=== PATIENT | male | born 1950 | race Caucasian/White ===

== ENCOUNTER → 2016-12-20 | Outpatient (CLI) | payer OTHER ==
[2015-11-17 12:41] VITALS: BP 123/72
--- NOTE | 2016-12-20 16:57 | CT ---
HISTORY: Right flank pain. Study: Computed tomography of the abdomen and pelvis: Multiple axial images were obtained throughout the abdomen and pelvis. Intravascular contrast was not administered. Oral contrast was not administe red. Radiation dose reduction techniques utilized. Comparison: 12/19/2013 Findings: The lung bases are clear. No evidence of pleural effusion, parenchymal infiltrates pulmonary nodules are identified. The heart size is normal. Significant coronary arterial calcification noted. The liver and gallbladder are normal. The pancreas is normal in its appearance. The spleen is normal in its appearance. No appreciable biliary duct dilatation is noted. The adrenal glands are normal. Mi nimal calcification noted within the abdominal aorta proximally. No evidence of an abdominal aortic a neurysm or retroperitoneal lymph node enlargement is noted. Mild to moderate is noted in the mid with minimal distally. Mild is noted in the iliac vessels. No evidence of pelvic adenopathy is identified . Mild prostatomegaly is noted. Prostatic calcifications are present. There appears to be hypertrophy of the median lobe of prostate. Small fat containing inguinal hernia is noted on the left. Seminal v esicles are symmetric. The right kidney demonstrates a 2-3 mm calcification in the upper pole that is nonobstructing. There is a 4- 5 mm calcification in the lower pole that is nonobstructing. The left kidney demonstrates a 4 - 5 mm calcification in the lower pole that is nonobstructing. Following the course of the ureters I see no evidence of ureteral dilatation or ureteral calculi. The stomach is nondistended. The small bowel is nondistended. There are few small mesenteric lymph no mateus. I see no evidence of mesenteric adenopathy. The terminal ileum is normal. The appendix is identi fied and normal. Cecum is normal. The ascending colon and transverse colon have a moderate amount of stool within them.. The descending colon demonstrates a couple of diverticulum. The sigmoid colon dem onstrates several diverticula. I see no evidence of diverticulitis. The sigmoid colon is mildly redun dant. Region of the rectum is normal. Patient is status post median sternotomy. There appears to remote fracture through the mid sternum. M oderate lumbar spondylosis is noted. IMPRESSION: 1. Bilateral nonobstructing renal calculi. I see no evidence of hydronephrosis, ureteral dilatation o r ureteral calculi. 2. Moderate amount stool within the ascending and transverse colon. 3. Diverticulosis. I see no evidence of diverticulitis. Reported By:
== END ==
LOC: RAD 13:43
PROVIDERS: ATTEND Specialist
DX: R10.84 Generalized abdominal pain (principal)
CPT/HCPCS: 74176

== ENCOUNTER 2017-04-17 08:28 | Day surgery (SDC) | payer OTHER ==
[2017-04-17] MEDS ORDERED: NS 1000 ML 1,000 ML ONE (08:42)
[2017-04-17] MEDS ORDERED: DIPRIVAN VIAL 20 ML ONE (10:10)
[2017-04-17 11:22] VITALS: BP 112/64
--- NOTE | 2017-04-17 11:44 | OR.GENERIC ---
Post-Op Note Generic - Post-Op Note Operative Report: Procedure Note April 17, 2017 Pre-Operative Diagnosis: Screening colonoscopy. Post-Operative Diagnosis: 1. Rectosigmoid polyp (at 15 cm). 2. Grade I internal hemorrhoids. Procedure: Colonoscopy to cecum. Surgeon: Cheo Grajeda MD Cement Finisher Apprentice: Ana Roper CRNA Specimens: Polyp at 15 cm. Estimated blood loss: Minimal. Complications: None. Summary: The patient is a 67 year old male who presented for a screening colonoscopy. The risk and benefits of the procedure including difficulty with anesthesia, bleeding, infection, as well as perforation were discussed with the patient. The patient understood these risks and requested the procedure. On April 17, 2017, the patient was brought to the endoscopy suite. A time out was performed verifying the patient and procedure. The patient was placed in a left lateral decubitus position. After satisfactory induction of monitored anesthesia care, a rectal exam was performed. The prostate was noted to be diffusely enlarged. Next, an endoscopy was advanced through the anus and directed to the cecum without difficulty. The scope was then withdrawn viewing all mucosal surfaces. The patients prep was adequate. The cecum, ascending, transverse, as well as descending portions of the colon were normal. Specifically, there were no masses, polyps, or diverticula. The scope was withdrawn through the sigmoid portion of the colon. No masses or diverticula were seen. However, a small polyp at 15 cm was seen. This was removed using cold biopsy forceps and sent to pathology. The scope was withdrawn into the rectum and retroflexed. Grade I internal hemorrhoids were noted. The scope was straightened and insufflation evacuated. The scope was withdrawn and the procedure terminated. The patient was taken to the recovery room in stable condition. There were no complications.
== END 2017-04-17 11:22 | disposition home or self-care (01) | DRG 951 ==
LOC: SURG1 08:28
PROVIDERS: ATTEND Student in an Organized Health Care Education/Training Program
PROC: 0DBN8ZX Excision of Sigmoid Colon, Via Natural or Artificial Opening Endoscopic, Diagnostic (ICD-10-PCS; 2017-04-17)
PROC: 0DJD8ZZ Inspection of Lower Intestinal Tract, Via Natural or Artificial Opening Endoscopic (ICD-10-PCS; principal; 2017-04-17 09:15)
DX: Z12.11 Encounter for screening for malignant neoplasm of colon (principal); K64.0 First degree hemorrhoids; D12.7 Benign neoplasm of rectosigmoid junction
CPT/HCPCS: A4217; J3490

== ENCOUNTER 2017-05-10 11:19 | Inpatient (IN) | payer OTHER ==
[2017-05-10 11:25] VITALS: BMI 24.3
--- NOTE | 2017-05-10 11:45 | DR.URIAD ---
HPI - Time Seen Time seen: 11:50 - PCP Primary Care Physician: ELIDA - HPI Comment HPI Comment: HISTORY BELOW. - Complaint Chief Complaint Doctors Comments: PERSISTENT COUGH, SOD AND CHEST PAIN TIMES 2 WEEKS. OUT PATIENT TRATMENT HAVE FAIL. PATIENT S CONDITION IS NOT IMPROVE. Chief Complaint:: PT C/O C/C/C AND FEVER. PT STATES HE HAS BEEN FEELING BAD AND HE HAS HAD 2 ROUNDS OF SHOTS AT THE PCP. PT STATES HE HAS BEEN TAKING ANTIBIOTICS. Self Treatment fo Chief Complaint: CIPRO 750MG BID - Reviewed Nurses Notes Reviewed: Yes - Source History Provided: Patient - Mode of Arrival Mode of Arrival: Ambulatory - Timing Onset of Chief Complaint: 04/26/17 - Context Recent Treated Infections: None History of Respiratory: None - Quality Quality of Cough: Productive, Yellow Rhinorrhea: None Shortness of Breath: Moderate - Associated Signs and Symptoms Other Signs and Symptoms: Cough, Shortness of Breath, Wheeze PMH - PMH Past Medical History: Yes Past Medical History: Anxiety, Arthritis, Coronary Artery Disease, Depression, Gout, Hypertension, Hypothyroidism, Kidney Stones Past Surgical History: Yes Surgical History: Angioplasty/Stents, CABG/Valve Surgery Past Surgical History Comment: HEART CATH - Family History History of Family Medical Conditions: Yes Family Medical History: [place], Sudden Cardiac , Hypertension - Social History Does patient currently use any type of tobacco product: No Have you used tobacco products in the last 12 months: No Type of Tobacco Use: Cigarettes Does any household member use tobacco: Yes Alcohol Use: None Do you use any recreational Drugs:: No Lives With: Family Lives Where: Home - infectious screening In the last 2 months have you had wt loss of >10#?: NO Have you had fever, night sweats or hemotysis?: No Have you traveled outside the country in the last 6 months?: No Isolation: Standard ROS - Review of Systems Constitutional: Weakness, Fatigue Eyes: No Symptoms Reported. negative: Eye Pain, Discharge ENTM: negative: Ear Pain, Nose Discharge, Nose Congestion, Throat Pain Respiratoy: Productive Cough, Short of Breath, Wheezing Cardiovascular: No Symptoms Reported, Chest Pain Gastrointestinal/Abdominal: No Symptoms Reported. negative: Nausea, Vomiting Genitourinary: No Symptoms Reported. negative: Dysuria, Frequency, Hematuria Neurological: No Symptoms Reported, Headache, Weakness, Dizziness Musculoskeletal: Muscle Pain, Chest wall Integumentary: Change in Color Hematologic/Lymphatic: No Symptoms Reported Endocrine: No Symptoms Reported All Other Systems: Reviewed and Negative PE - Vital Signs Vitals: Temperature 99.2 F Pulse Rate 70 Respiratory Rate 20 Blood Pressure [Left Arm] 145/83 Blood Pressure [Right Arm] 127/74 Blood Pressure 125/78 O2 Sat by Pulse Oximetry 98 - General Limitations: No Limitations General Appearance: Alert - Head Head Exam: Normal Inspection - Eyes Eye exam: Normal Appearance - ENT ENT Exam: Normal External Ear Exam External Ear Exam: Normal External Inspection TM/Canal Exam: Bilateral Normal Nose Exam: Normal Nose Exam Mouth Exam: Normal Inspection Throat Exam: Tonsillar Erythema - Neck Neck Exam: Trachea Midline. negative: Tenderness, Meningismus, Lymphadenopathy - Chest Chest Inspection: Symmetric Chest Wall Rise - Respiratory Respiratory Exam: Chest Wall Tenderness, Respiratory Distress Respiratory Exam: Bilateral Wheezing, Bilateral Rhonchi, Upper Wheezing, Upper Rhonchi, Lower Wheezing, Lower Rhonchi - Cardiovascular Cardiovascular Exam: Regular Rate, Normal Rhythm, Normal Heart Sounds - Abdominal Exam Abdominal Exam: Normal Bowel Sounds, Soft. negative: Tenderness - Extremeties Extremities Exam: Normal Inspection - Back Back Exam: Normal Inspection - Neurologic Neurological Exam: Alert, Oriented X3 - Psychiatric Psychiatric Exam: Normal Affect, Normal Mood - Skin Skin Exam: Normal Color MDM - Additional Information Additional Information Obtained From: Family - Differential Diagnosis Differential Diagnosis: Streptococcal pharyngitis, Pneumonia, Sinsusitis, URI ( BRONCHITIS, FAILURE OF OUT PATIENT TREATMENT.) Course - Reevaluation 1st: Resolved - Education/Counseling Education/Counseling: Patient, Family, Education Educated On: Diagnosis, Needs for Follow Up ROR - Labs Reviewed Laboratory Results Reviewed?: Yes Result Diagrams: 05/11/17 05:11 05/11/17 05:11 Laboratory: WBC 7.0 X10^3/uL (3.6-10.0) 05/10/17 12:15 RBC 4.08 X10^6/uL (4.7-6.0) L 05/10/17 12:15 Hgb 12.9 g/dL (13.5-18.0) L 05/10/17 12:15 Hct 37.9 % (42.0-54.0) L 05/10/17 12:15 MCV 92.9 fL (80.0-100.0) 05/10/17 12:15 MCH 31.7 pg (27.0-34.0) 05/10/17 12:15 MCHC 34.1 g/dL (33.0-35.0) 05/10/17 12:15 RDW 15.9 % (11.6-16.5) 05/10/17 12:15 Plt Count 259 X10^3/uL (150.0-450.0) 05/10/17 12:15 MPV 7.6 fL (7.4-11.0) 05/10/17 12:15 Neut % (Auto) 70.7 % (42.0-75.0) 05/10/17 12:15 Lymph % (Auto) 16.2 % (21.0-51.0) L 05/10/17 12:15 [place] % (Auto) 9.3 % (0.0-13.0) 05/10/17 12:15 Eos % (Auto) 3.2 % (0.9-2.9) H 05/10/17 12:15 Baso % (Auto) 0.6 % (0.2-1.0) 05/10/17 12:15 Neut # (Auto) 4.9 x10^3/uL (2.2-4.8) H 05/10/17 12:15 Lymph # (Auto) 1.1 X10^3/uL (1.3-2.9) L 05/10/17 12:15 [place] # (Auto) 0.7 x10^3/uL (0.3-0.8) 05/10/17 12:15 Eos # (Auto) 0.2 x10^3/uL (0.0-0.2) 05/10/17 12:15 Baso # (Auto) 0.0 X10^3/uL (0.0-0.1) 05/10/17 12:15 Absolute Nucleated RBC 0.0 /100WBC 05/10/17 12:15 D-Dimer 1110 ng/mL (0-400) H* 05/10/17 12:15 Sodium 144 mmol/L (136-145) 05/10/17 12:15 Corrected Sodium TNP 05/10/17 12:15 Potassium 4.2 mmol/L (3.5-5.1) 05/10/17 12:15 Chloride 105 mmol/L (98-107) 05/10/17 12:15 Carbon Dioxide 30.1 mmol/L (21-32) 05/10/17 12:15 BUN 8 mg/dL (7-18) 05/10/17 12:15 Creatinine 0.94 mg/dL (0.70-1.30) 05/10/17 12:15 Est GFR (MDRD) Af Amer > 60 (>60) 05/10/17 12:15 Est GFR (MDRD) Non-Af > 60 (>60) 05/10/17 12:15 Glucose 86 mg/dL (65-99) 05/10/17 12:15 Lactic Acid 1.5 mmol/L (0.4-2.0) 05/10/17 12:15 Calcium 9.1 mg/dL (8.5-10.1) 05/10/17 12:15 Corrected Calcium TNP 05/10/17 12:15 Total Bilirubin 0.40 mg/dL (0.2-1.0) 05/10/17 12:15 AST 19 Units/L (15-37) 05/10/17 12:15 ALT 44 Units/L (12-78) 05/10/17 12:15 Alkaline Phosphatase 52 Units/L (46-116) 05/10/17 12:15 Total Protein 8.0 g/dL (6.4-8.2) 05/10/17 12:15 Albumin 4.3 g/dL (3.4-5.0) 05/10/17 12:15 Globulin 3.7 g/dL (2.5-4.5) 05/10/17 12:15 Albumin/Globulin Ratio 1.2 Ratio (1.1-2.1) 05/10/17 12:15 - XRAY XRAY Interpreted by: Radiologist XRAY Findings: DISCUSS PATIENT WITH DR. MARRERO. HE WILL ADMIT PATIENT. - Diagnosis Discharge Problem: Respiratory distress Pneumonia Qualifiers: Pneumonia type: due to unspecified organism Laterality: left Lung location: lower lobe of lung Qualified Code(s): J18.1 - Lobar pneumonia, unspecified organism - Discharge Plan Disposition: ADMITTED INPATIENT Condition: Stable - Follow ups/Referrals - Instructions
[2017-05-10 12:45] LABS: BASOPHILS % (AUTO) 0.6 % (0.2-1.0); EOSINOPHILS # (AUTO) 0.2 x10^3/uL (0.0-0.2); EOSINOPHILS % (AUTO) 3.2 % (0.9-2.9); HEMATOCRIT 37.9 % (42.0-54.0); HEMOGLOBIN 12.9 g/dL (13.5-18.0); LYMPHOCYTES # (AUTO) 1.1 X10^3/uL (1.3-2.9); LYMPHOCYTES % (AUTO) 16.2 % (21.0-51.0); MEAN CORPUSCULAR HEMOGLOBIN 31.7 pg (27.0-34.0); MEAN CORPUSCULAR HGB CONC 34.1 g/dL (33.0-35.0); MEAN CORPUSCULAR VOLUME 92.9 fL (80.0-100.0); MEAN PLATELET VOLUME 7.6 fL (7.4-11.0); MONOCYTES # (AUTO) 0.7 x10^3/uL (0.3-0.8); MONOCYTES % (AUTO) 9.3 % (0.0-13.0); NEUTROPHILS # (AUTO) 4.9 x10^3/uL (2.2-4.8); NEUTROPHILS % (AUTO) 70.7 % (42.0-75.0); PLATELET COUNT 259 X10^3/uL (150.0-450.0); RED BLOOD COUNT 4.08 X10^6/uL (4.7-6.0); RED CELL DISTRIBUTION WIDTH 15.9 % (11.6-16.5)
[2017-05-10] MEDS ORDERED: DUONEB 0.5 MG/3 MG NEB ONE (12:50)
[2017-05-10 12:57] LABS: ALANINE AMINOTRANSFERASE 44 Units/L (12-78); ALBUMIN 4.3 g/dL (3.4-5.0); ALKALINE PHOSPHATASE 52 Units/L (46-116); ASPARTATE AMINO TRANSFERASE 19 Units/L (15-37); BLOOD UREA NITROGEN 8 mg/dL (7-18); CALCIUM 9.1 mg/dL (8.5-10.1); CARBON DIOXIDE 30.1 mmol/L (21-32); CHLORIDE 105 mmol/L (98-107); CREATININE 0.94 mg/dL (0.70-1.30); SODIUM 144 mmol/L (136-145); eGFR BLACK RACES > 60 (>60); eGFR NON BLACK RACES > 60 (>60)
[2017-05-10 13:01] LABS: LACTIC ACID 1.5 mmol/L (0.4-2.0)
[2017-05-10] MEDS ORDERED: NS 100 ML IV 100 ML IV ONE (13:28)
[2017-05-10] MEDS ORDERED: ROCEPHIN VIAL 1 GM 1 GM in NS 100 ML IV + SPIKE MINIBAG* 100 ML IV ONE (14:12)
--- NOTE | 2017-05-10 14:27 | CT ---
HISTORY: Cough, cold, congestion, fever, shortness of breath, elevated D-dimer Study: CTA chest Comparison: 02/17/2016 Technique: Multiple axial images of the chest were obtained after the administration of IV contrast. 3D reconstructions were performed utilizing radial maximum intensity projection imaging. Dose reduct ion techniques including Automated Exposure Control (AEC) and adjustment of mA and kV were utilized. Findings: Contrast opacification of the pulmonary arteries is adequate to the level of the segmental branches. No evidence of acute pulmonary emboli. Sternotomy changes are noted post CABG. Heart size is normal. No pericardial effusion is identified. The aorta appears normal in course and caliber. There is mild bronchiolar thickening with bronchocentric ground-glass opacities at the left lung base. There is mil d subsegmental atelectasis as well in the left lung base. Right lung is clear. No pneumothorax or eff usion is identified. Airways are patent. The soft tissues and osseous structures appear intact. The visualized portions of the upper abdomen a re grossly unremarkable. IMPRESSION: 1. Mild bronchiolar thickening and ground-glass opacities at the left lung base, likely infectious/in flammatory. 2. No acute pulmonary emboli. 3. Post CABG. Reported By:
[2017-05-10] MEDS ORDERED: TUSSIONEX PENNKINETIC SUSP PO PRN (15:16)
[2017-05-10] MEDS ORDERED: ROCEPHIN 1 GM IV PREMIX 1 GM/50 ML IV.SOLN. IV ONE (15:30)
[2017-05-10] MEDS ORDERED: NS 1/2 1000 ML IV 1,000 ML IV ONE (16:25)
[2017-05-10] MEDS: NS 1/2 1000 ML IV 1,000 ML IV SCH (16:31)
[2017-05-10] MEDS: VIBRAMYCIN 100 MG in D5W 250 ML IV 250 ML IV SCH ×2 (16:31→21:26)
[2017-05-10] MEDS: ROBITUSSIN DM PO SCH ×2 (17:23→21:29)
[2017-05-10] MEDS: XOPENEX 1.25 MG/3 ML NEBULE NEB SCH (22:12)
[2017-05-10] MEDS: FORTAZ or TAZICEF INJ 1 GM in NS 100 ML IV + SPIKE MINIBAG* 100 ML IV SCH (23:16)
[2017-05-11] MEDS ORDERED: NS 1/2 1000 ML IV 1,000 ML IV ONE ×2 (04:05→22:24)
[2017-05-11] MEDS: FORTAZ or TAZICEF INJ 1 GM in NS 100 ML IV + SPIKE MINIBAG* 100 ML IV SCH ×3 (05:04→21:30)
[2017-05-11] MEDS: NS 1/2 1000 ML IV 1,000 ML IV SCH ×2 (05:27→20:40)
[2017-05-11 05:40] LABS: BASOPHILS % (AUTO) 0.9 % (0.2-1.0); EOSINOPHILS # (AUTO) 0.3 x10^3/uL (0.0-0.2); EOSINOPHILS % (AUTO) 4.9 % (0.9-2.9); HEMATOCRIT 32.7 % (42.0-54.0); HEMOGLOBIN 11.2 g/dL (13.5-18.0); LYMPHOCYTES # (AUTO) 1.4 X10^3/uL (1.3-2.9); LYMPHOCYTES % (AUTO) 23.7 % (21.0-51.0); MEAN CORPUSCULAR HEMOGLOBIN 31.8 pg (27.0-34.0); MEAN CORPUSCULAR HGB CONC 34.3 g/dL (33.0-35.0); MEAN CORPUSCULAR VOLUME 92.5 fL (80.0-100.0); MEAN PLATELET VOLUME 7.7 fL (7.4-11.0); MONOCYTES # (AUTO) 0.5 x10^3/uL (0.3-0.8); MONOCYTES % (AUTO) 9.3 % (0.0-13.0); NEUTROPHILS # (AUTO) 3.5 x10^3/uL (2.2-4.8); NEUTROPHILS % (AUTO) 61.2 % (42.0-75.0); PLATELET COUNT 215 X10^3/uL (150.0-450.0); RED BLOOD COUNT 3.53 X10^6/uL (4.7-6.0); RED CELL DISTRIBUTION WIDTH 15.9 % (11.6-16.5); WHITE BLOOD COUNT 5.7 X10^3/uL (3.6-10.0)
[2017-05-11] MEDS: XOPENEX 1.25 MG/3 ML NEBULE NEB SCH ×4 (05:57→21:48)
[2017-05-11 05:58] LABS: ALANINE AMINOTRANSFERASE 36 Units/L (12-78); ALBUMIN 3.4 g/dL (3.4-5.0); ALKALINE PHOSPHATASE 42 Units/L (46-116); ASPARTATE AMINO TRANSFERASE 17 Units/L (15-37); BLOOD UREA NITROGEN 8 mg/dL (7-18); CALCIUM 8.6 mg/dL (8.5-10.1); CARBON DIOXIDE 24.6 mmol/L (21-32); CHLORIDE 109 mmol/L (98-107); CREATININE 0.94 mg/dL (0.70-1.30); SODIUM 145 mmol/L (136-145); TOTAL PROTEIN 6.5 g/dL (6.4-8.2); eGFR BLACK RACES > 60 (>60); eGFR NON BLACK RACES > 60 (>60)
[2017-05-11] MEDS ORDERED: K-RIDER 10 MEQ/NS 100 ML 10 MEQ/100 ML BAG IV PRN (06:38)
[2017-05-11] MEDS ORDERED: POTASSIUM CHL 60 MEQ/NS 0.45% 500 ML IV PRN (06:38)
[2017-05-11] MEDS ORDERED: POTASSIUM CHLORIDE LIQ 20 MEQ UDC PO PRN (06:38)
[2017-05-11] MEDS ORDERED: K-LYTE EFFERVESCENT PO PRN (06:38)
[2017-05-11] MEDS ORDERED: POTASSIUM CHL 40 MEQ/NS 0.45% 500 ML IV PRN (06:38)
[2017-05-11] MEDS: VIBRAMYCIN 100 MG in D5W 250 ML IV 250 ML IV SCH ×2 (10:18→22:18)
[2017-05-11] MEDS: ROBITUSSIN DM PO SCH ×4 (10:18→20:40)
[2017-05-11] MEDS ORDERED: XANAX PO PRN (11:55)
[2017-05-11] MEDS ORDERED: METHOTREXATE PO SCH (12:00)
--- NOTE | 2017-05-11 12:00 | DR.H&P ---
H&P - History & Physical for Day of: H&P Date: 05/10/17 - Chief Complaint Chief Complaint: SOB, CCC - Allergies Allergies/Adverse Reactions: Allergies Allergy/AdvReac Type Severity Reaction Status Date / Time cefadroxil [From Duricef] Allergy Verified 05/10/17 15:08 ertapenem [From Invanz] Allergy Verified 05/10/17 15:08 naproxen [From Naprosyn] Allergy Verified 05/10/17 15:08 - History of Present Illness History of Present Illness: 67WM ER ADMISSION AFTER PRESENTING WITH CO CCC WITH INCREASE SOB AND FATIGUE. PT STATES HE SEES DR MARRERO FOR PCP AND HAS BEEN TREATED OVER LAST 2 WEEKS FOR BRONCHITIS LIKE SYMPTOMS WITH IM ROCEPHIN, STEROIDS AND PO ATBX WITHOUT IMPRPOVEMENT. PT HAS PMH OF CAD, CHF, COPD, HTN, OA, ANGELINA. PT SEEN [employer]NER BLOCK CUTTER 2 MOS WITH ECHO, AND STABLE REPORT. PT ADMITTED FOR TREATMENT OF PNEUMONIA - Past Medical History Past Medical History: Anxiety, Arthritis, CHF, COPD, Coronary Artery Disease, Depression, Gout, Hypertension, Hypothyroidism, Kidney Stones - Past Surgical History Surgical History: Angioplasty/Stents, CABG/Valve Surgery - Family History Family Medical History: [place], Sudden Cardiac , Hypertension - Social History Does patient currently use any type of tobacco product: No Have you used tobacco products in the last 12 months: No Type of Tobacco Use: Cigarettes How many years tobacco product used: 15 Does any household member use tobacco: Yes Alcohol Use: None Drug Use: None - Medications Home Medications: Alprazolam 1 tab PO BID PRN 05/10/17 [History Confirmed 05/10/17] Doxazosin Mesylate 1 tab PO HS 05/10/17 [History Confirmed 05/10/17] Meloxicam 1 tab PO DAILY 05/10/17 [History Confirmed 05/10/17] Methotrexate Sodium [METHOTREXATE 2.5 MG *] 1 tab PO WEEKLY 05/10/17 [History Confirmed 05/10/17] Metoprolol Succinate Ext Rel [TOPROL XL 50 MG *] 1 tab PO DAILY 05/10/17 [ History Confirmed 05/10/17] Trazodone HCl 1 tab PO HS 05/10/17 [History Confirmed 05/10/17] Aspirin EC [ASPIRIN EC 81 MG *] 1 tabs PO DAILY 05/11/17 [History Confirmed ] - Review of Systems Constitutional: Malaise Eyes: No Symptoms Reported ENT: Nose Discharge, Nose Congestion Respiratory: Cough, Shortness of Breath, SOB with Excertion, Wheezing Cardiovascular: No Symptoms Reported Gastrointestinal: Nausea Genitourinary: No Symptoms Reported Musculoskeletal: Back Pain Skin: No Symptoms Reported Neurological: Weakness - Physical Exam Vital Signs: Temperature 97.4 F Pulse Rate [Left Brachial] 98 Pulse Rate [Right Radial] 71 Pulse Rate [Left Radial] 70 Pulse Rate 75 Respiratory Rate 18 Blood Pressure [Left Arm] 125/61 Blood Pressure [Right Arm] 127/74 Blood Pressure 125/78 O2 Sat by Pulse Oximetry 97 Oriented: Normal Eyes: Normal Ear: Normal Nose: Normal Throat: Normal Respiratory: Wheezes Throughout, RLL Diminished, LLL Diminished Cardiovascular: Tachycardia. negative: Edema : Normal Auscultation: Bowel Sounds: Normal Palpation: Normal Tenderness: Normal Skin: Normal Musculoskeletal: Back:Thoracic, Back:Lumbar Psychiatric: Anxiety Affect: Anxious, Depressed Speech Pattern: Clear, Appropriate - Assessment/Plan (1) Pneumonia Qualifiers: Pneumonia type: due to unspecified organism Laterality: left Lung location: lower lobe of lung Qualified Code(s): J18.1 - Lobar pneumonia, unspecified organism Status: Acute Plan: ADMIT RESP THERAPY, IV ATBX, SUPPLEMENTAL O2. RESUME HOME MEDS. BP MONITORING. JET NEBS, SPUTUM CULTURES (2) CAD (coronary artery disease) Status: Chronic (3) Depression Status: Chronic (4) Hypertension Status: Chronic (5) Hypothyroidism Status: Chronic
[2017-05-11] MEDS: EFFEXOR XR 37.5 MG CAP PO SCH (13:36)
[2017-05-11] MEDS: TOPROL XL PO SCH (13:36)
[2017-05-11] MEDS ORDERED: XOPENEX 1.25 MG/3 ML NEBULE NEB ONE (18:38)
[2017-05-11] MEDS: CRESTOR TAB 10 MG PO SCH (20:37)
[2017-05-11] MEDS: PROzac PO SCH (20:38)
[2017-05-11] MEDS: DESYREL PO SCH (20:38)
[2017-05-11] MEDS: CARDURA PO SCH (20:39)
[2017-05-11] MEDS: NORCO 10/325 TAB PO SCH (20:39)
[2017-05-11] MEDS ORDERED: DOXAZOSIN MESYLATE PO SCH (21:00)
[2017-05-11] MEDS ORDERED: TRAZODONE HCL PO SCH (21:00)
[2017-05-11] MEDS ORDERED: NS 250 ML IV 250 ML IV ONE (22:14)
[2017-05-11] MEDS ORDERED: VIBRAMYCIN IV ONE (22:15)
[2017-05-12] MEDS: MAGNESIUM SULFATE 1 GM/100 mL PREMIX 1 GM/100 ML BAG IV PRN ×2 (01:42→03:05)
[2017-05-12] MEDS: XOPENEX 1.25 MG/3 ML NEBULE NEB SCH ×3 (05:06→20:28)
[2017-05-12] MEDS: FORTAZ or TAZICEF INJ 1 GM in NS 100 ML IV + SPIKE MINIBAG* 100 ML IV SCH ×3 (05:44→21:28)
[2017-05-12 05:52] LABS: BASOPHILS % (AUTO) 0.9 % (0.2-1.0); EOSINOPHILS # (AUTO) 0.3 x10^3/uL (0.0-0.2); EOSINOPHILS % (AUTO) 5.9 % (0.9-2.9); HEMATOCRIT 32.8 % (42.0-54.0); HEMOGLOBIN 11.3 g/dL (13.5-18.0); LYMPHOCYTES # (AUTO) 1.3 X10^3/uL (1.3-2.9); LYMPHOCYTES % (AUTO) 25.1 % (21.0-51.0); MEAN CORPUSCULAR HEMOGLOBIN 32.2 pg (27.0-34.0); MEAN CORPUSCULAR HGB CONC 34.4 g/dL (33.0-35.0); MEAN CORPUSCULAR VOLUME 93.4 fL (80.0-100.0); MEAN PLATELET VOLUME 7.8 fL (7.4-11.0); MONOCYTES # (AUTO) 0.5 x10^3/uL (0.3-0.8); MONOCYTES % (AUTO) 10.6 % (0.0-13.0); NEUTROPHILS # (AUTO) 2.9 x10^3/uL (2.2-4.8); NEUTROPHILS % (AUTO) 57.5 % (42.0-75.0); PLATELET COUNT 204 X10^3/uL (150.0-450.0); RED BLOOD COUNT 3.52 X10^6/uL (4.7-6.0); RED CELL DISTRIBUTION WIDTH 15.9 % (11.6-16.5); WHITE BLOOD COUNT 5.1 X10^3/uL (3.6-10.0)
[2017-05-12 06:03] LABS: ALANINE AMINOTRANSFERASE 35 Units/L (12-78); ALBUMIN 3.2 g/dL (3.4-5.0); ALKALINE PHOSPHATASE 42 Units/L (46-116); ASPARTATE AMINO TRANSFERASE 18 Units/L (15-37); BLOOD UREA NITROGEN 8 mg/dL (7-18); CALCIUM 8.3 mg/dL (8.5-10.1); CARBON DIOXIDE 25.3 mmol/L (21-32); CHLORIDE 108 mmol/L (98-107); COR CA(FOR HYPOALB) 8.9 mg/dL (8.5-10.1); COR NA(FOR HYPERGLY) 143 mmol/L (136-145); CREATININE 0.91 mg/dL (0.70-1.30); SODIUM 142 mmol/L (136-145); TOTAL PROTEIN 6.2 g/dL (6.4-8.2); eGFR BLACK RACES > 60 (>60); eGFR NON BLACK RACES > 60 (>60)
--- NOTE | 2017-05-12 07:34 | RAD ---
HISTORY: 67-year-old male with pneumonia. Study: Frontal view of the chest. Comparison: CTA chest 05/10/2017 Findings: Surgical devices are stable. The trachea is midline. The cardiac silhouette is stably enlarged. Low lung volumes with bibasilar patchy airspace opacities, left greater than right with poor respiratory effort. No large effusion or pneumothorax. Soft tissues are unremarkable. Osseous structures are unremarkable. IMPRESSION: 1. Bibasilar airspace opacities, left greater than right, likely partially secondary to poor inspira tory effort as well as previously identified small region of left basilar consolidation suggesting pn eumonia. Correlate clinically. Reported By:
[2017-05-12] MEDS: SYNTHROID 75 mcg TAB PO SCH (10:27)
[2017-05-12] MEDS: ZYLOPRIM PO SCH (10:27)
[2017-05-12] MEDS: MOBIC TAB 15 MG PO SCH (10:27)
[2017-05-12] MEDS: ROBITUSSIN DM PO SCH ×4 (10:27→21:32)
[2017-05-12] MEDS: ASPIRIN EC 81 MG PO SCH (10:27)
[2017-05-12] MEDS: NORCO 10/325 TAB PO SCH ×2 (10:28→21:33)
[2017-05-12] MEDS: TOPROL XL PO SCH (10:28)
[2017-05-12] MEDS: VIBRAMYCIN 100 MG in D5W 250 ML IV 250 ML IV SCH ×2 (11:39→21:33)
[2017-05-12] MEDS: NS 1/2 1000 ML IV 1,000 ML IV SCH (11:56)
[2017-05-12] MEDS: EFFEXOR XR 37.5 MG CAP PO SCH (12:12)
[2017-05-12] MEDS: CRESTOR TAB 10 MG PO SCH (21:30)
[2017-05-12] MEDS: DESYREL PO SCH (21:31)
[2017-05-12] MEDS: PROzac PO SCH (21:31)
[2017-05-12] MEDS: CARDURA PO SCH (21:32)
[2017-05-13] MEDS: NS 1/2 1000 ML IV 1,000 ML IV SCH ×3 (00:51→21:10)
[2017-05-13] MEDS ORDERED: NS 1/2 1000 ML IV 1,000 ML IV ONE ×2 (03:16→21:03)
[2017-05-13] MEDS: XOPENEX 1.25 MG/3 ML NEBULE NEB SCH ×3 (05:10→20:36)
[2017-05-13 05:27] LABS: BASOPHILS # (AUTO) 0.1 X10^3/uL (0.0-0.1); BASOPHILS % (AUTO) 1.1 % (0.2-1.0); EOSINOPHILS # (AUTO) 0.4 x10^3/uL (0.0-0.2); EOSINOPHILS % (AUTO) 8.1 % (0.9-2.9); HEMATOCRIT 32.3 % (42.0-54.0); HEMOGLOBIN 11.3 g/dL (13.5-18.0); LYMPHOCYTES # (AUTO) 1.2 X10^3/uL (1.3-2.9); LYMPHOCYTES % (AUTO) 25.4 % (21.0-51.0); MEAN CORPUSCULAR HEMOGLOBIN 32.2 pg (27.0-34.0); MEAN CORPUSCULAR VOLUME 92.1 fL (80.0-100.0); MEAN PLATELET VOLUME 7.7 fL (7.4-11.0); MONOCYTES # (AUTO) 0.5 x10^3/uL (0.3-0.8); MONOCYTES % (AUTO) 9.6 % (0.0-13.0); NEUTROPHILS # (AUTO) 2.7 x10^3/uL (2.2-4.8); NEUTROPHILS % (AUTO) 55.8 % (42.0-75.0); PLATELET COUNT 189 X10^3/uL (150.0-450.0); RED BLOOD COUNT 3.51 X10^6/uL (4.7-6.0); WHITE BLOOD COUNT 4.8 X10^3/uL (3.6-10.0)
[2017-05-13 05:38] LABS: ALANINE AMINOTRANSFERASE 35 Units/L (12-78); ALBUMIN 3.2 g/dL (3.4-5.0); ALKALINE PHOSPHATASE 44 Units/L (46-116); ASPARTATE AMINO TRANSFERASE 15 Units/L (15-37); BLOOD UREA NITROGEN 9 mg/dL (7-18); CALCIUM 8.3 mg/dL (8.5-10.1); CARBON DIOXIDE 22.9 mmol/L (21-32); CHLORIDE 109 mmol/L (98-107); COR CA(FOR HYPOALB) 8.9 mg/dL (8.5-10.1); CREATININE 0.85 mg/dL (0.70-1.30); MAGNESIUM 1.9 mg/dL (1.7-2.9); SODIUM 143 mmol/L (136-145); TOTAL PROTEIN 6.3 g/dL (6.4-8.2); eGFR BLACK RACES > 60 (>60); eGFR NON BLACK RACES > 60 (>60)
[2017-05-13] MEDS: FORTAZ or TAZICEF INJ 1 GM in NS 100 ML IV + SPIKE MINIBAG* 100 ML IV SCH ×3 (05:54→21:11)
--- NOTE | 2017-05-13 07:07 | RAD ---
History: Pneumonia, comparison 05/12/2017 Study: Chest one view Findings: AP upright chest labeled 6:51 a.m. shows the cardiac silhouette to be within normal limits. The right lung is clear. Minimal linear opacity in the left base is seen likely representing atelecta sis. No pleural effusion is seen. Postop changes of CABG are noted. No CHF is evident. Impression: 1. Clearance of the right basilar linear opacity likely atelectasis 2. Improving left lower lobe consolidation suggestive of clearing atelectasis or pneumonia Reported By:
[2017-05-13] MEDS: MOBIC TAB 15 MG PO SCH (09:47)
[2017-05-13] MEDS: ASPIRIN EC 81 MG PO SCH (09:47)
[2017-05-13] MEDS: SYNTHROID 75 mcg TAB PO SCH (09:47)
[2017-05-13] MEDS: ROBITUSSIN DM PO SCH ×4 (09:47→21:11)
[2017-05-13] MEDS: NORCO 10/325 TAB PO SCH ×2 (09:47→21:13)
[2017-05-13] MEDS: ZYLOPRIM PO SCH (09:48)
[2017-05-13] MEDS: TOPROL XL PO SCH (09:48)
[2017-05-13] MEDS: EFFEXOR XR 37.5 MG CAP PO SCH (09:52)
[2017-05-13] MEDS: SOLU-Medrol 40 MG VIAL IVP SCH ×3 (10:06→21:12)
[2017-05-13] MEDS: LEVAQUIN PREMIX IV 750 MG 750 MG/150 ML BAG IV SCH (10:06)
[2017-05-13] MEDS: VIBRAMYCIN 100 MG in D5W 250 ML IV 250 ML IV SCH (11:45)
[2017-05-13] MEDS: TEMOVATE CREAM EXT SCH ×2 (12:00→21:21)
[2017-05-13] MEDS: CRESTOR TAB 10 MG PO SCH (21:12)
[2017-05-13] MEDS: CARDURA PO SCH (21:12)
[2017-05-13] MEDS: DESYREL PO SCH (21:12)
[2017-05-13] MEDS: PROzac PO SCH (21:14)
[2017-05-14] MEDS: XOPENEX 1.25 MG/3 ML NEBULE NEB SCH (05:04)
[2017-05-14] MEDS: NS 1/2 1000 ML IV 1,000 ML IV SCH (05:14)
[2017-05-14] MEDS: FORTAZ or TAZICEF INJ 1 GM in NS 100 ML IV + SPIKE MINIBAG* 100 ML IV SCH (05:14)
[2017-05-14 05:28] LABS: BASOPHILS % (AUTO) 0.1 % (0.2-1.0); HEMATOCRIT 34.2 % (42.0-54.0); HEMOGLOBIN 11.6 g/dL (13.5-18.0); LYMPHOCYTES # (AUTO) 0.5 X10^3/uL (1.3-2.9); LYMPHOCYTES % (AUTO) 6.4 % (21.0-51.0); MEAN CORPUSCULAR HEMOGLOBIN 31.6 pg (27.0-34.0); MEAN CORPUSCULAR HGB CONC 33.9 g/dL (33.0-35.0); MEAN CORPUSCULAR VOLUME 93.1 fL (80.0-100.0); MEAN PLATELET VOLUME 8.2 fL (7.4-11.0); MONOCYTES # (AUTO) 0 x10^3/uL (0.3-0.8); MONOCYTES % (AUTO) 0.7 % (0.0-13.0); NEUTROPHILS # (AUTO) 6.8 x10^3/uL (2.2-4.8); NEUTROPHILS % (AUTO) 92.8 % (42.0-75.0); PLATELET COUNT 196 X10^3/uL (150.0-450.0); RED BLOOD COUNT 3.67 X10^6/uL (4.7-6.0); RED CELL DISTRIBUTION WIDTH 15.5 % (11.6-16.5); WHITE BLOOD COUNT 7.3 X10^3/uL (3.6-10.0)
[2017-05-14 05:33] LABS: ALANINE AMINOTRANSFERASE 35 Units/L (12-78); ALBUMIN 3.4 g/dL (3.4-5.0); ALKALINE PHOSPHATASE 48 Units/L (46-116); ASPARTATE AMINO TRANSFERASE 15 Units/L (15-37); BLOOD UREA NITROGEN 11 mg/dL (7-18); CALCIUM 8.8 mg/dL (8.5-10.1); CARBON DIOXIDE 23.2 mmol/L (21-32); CHLORIDE 108 mmol/L (98-107); COR NA(FOR HYPERGLY) 143 mmol/L (136-145); CREATININE 0.85 mg/dL (0.70-1.30); SODIUM 141 mmol/L (136-145); TOTAL PROTEIN 6.8 g/dL (6.4-8.2); eGFR BLACK RACES > 60 (>60); eGFR NON BLACK RACES > 60 (>60)
[2017-05-14 06:11] LABS: BAND NEUTROPHILS % 4 % (0-10); PLATELET MORPHOLOGY COMMENT NORMAL (NORMAL)
--- NOTE | 2017-05-14 06:53 | RAD ---
HISTORY: Follow-up pneumonia Study: Chest AP portable Comparison: 05/13/2017 Findings: The heart is within normal limits in size. The rosalino are normal. The lungs are well inflated and clear . No pleural effusions are identified. The bony thorax is unremarkable. The patient is status post me rina sternotomy and CABG. IMPRESSION: Lungs clear Reported By:
[2017-05-14] MEDS ORDERED: MILK OF MAGNESIA PO SCH (09:00)
[2017-05-14] MEDS: ROBITUSSIN DM PO SCH ×2 (09:05→12:16)
[2017-05-14] MEDS: TOPROL XL PO SCH (09:05)
[2017-05-14] MEDS: MOBIC TAB 15 MG PO SCH (09:05)
[2017-05-14] MEDS: NORCO 10/325 TAB PO SCH (09:06)
[2017-05-14] MEDS: EFFEXOR XR 37.5 MG CAP PO SCH (09:06)
[2017-05-14] MEDS: ASPIRIN EC 81 MG PO SCH (09:06)
[2017-05-14] MEDS: SYNTHROID 75 mcg TAB PO SCH (09:06)
[2017-05-14] MEDS: ZYLOPRIM PO SCH (09:06)
[2017-05-14] MEDS: TEMOVATE CREAM EXT SCH (09:07)
[2017-05-14] MEDS: LEVAQUIN PREMIX IV 750 MG 750 MG/150 ML BAG IV SCH (09:07)
--- NOTE | 2017-05-14 11:17 | PCM.PROG ---
Progress Note - Progress Note for Day of Date: 05/13/17 - Subjective Subjective: IS BEING TREATED FOR PNEUMONIA. TODAY, HE IS ALERT AND ORIENTED, LYING IN BED ON MORNING ROUNDS. PATIENTS SPOUSE IS AT BEDSIDE. HE IS NOTED WITH COMPLAINTS OF A PRODUCTIVE COUGH AND SHORTNESS OF BREATH. ON EXAMINATION, HEART IS REGULAR IN RATE AND RHYTHM. BILATERAL LUNGS ARE NOTED WITH SCATTERED WHEEZING AND RHONCHI THROUGHOUT. HE IS CURRENTLY UTILIZING OXYGEN VIA NASAL CANNUAL AT 2L/MIN. ABDOMEN IS ROUND, SOFT, AND NON-TENDER WITH NORMAL BOWEL SOUNDS NOTED IN ALL QUADRANTS. NORMAL RANGE OF MOTION NOTED TO ALL EXTREMITIES. HIS VITALS THIS MORNING ARE 97.5-63-18-95%-121/60. LABS WERE OBTAINED. ABNORMAL LAB VALUES INCLUDE THE FOLLOWING: RBC 3.51, HGB 11.3, HCT 32.3, CHLORIDE 109, CALCIUM 8.3, ALKALINE PHOSPHATASE 44, TOTAL PROTEIN 6.3, ALBUMIN 3.2. A CHEST XRAY WAS OBTAINED AND REPORTS CLEARANCE OF THE RIGHT BASILAR LINEAR OPACITY LIKELY ATELECTASIS. IMPROVING LEFT LOWER LOBE CONSOLIDATION SUGGESTIVE OF CLEARING ATELECTASIS OR PNEUMONIA. TODAY, WE WILL OBTAIN A REPEAT SPUTUM CULTURE. WE WILL START SOLU-MEDROL 80MG IV Q8H AND TEMOVATE CREAM TO RASH ON BILATERAL HANDS. OTHERWISE, WE PLAN TO FOLLOW UP WITH AM LABS AND CHEST XRAY AND CONTINUE TO MONITOR PATIENT. - Past Medical Family Social History Past Med/Fam/Surg Hx: No changes since H&P Allergies: Allergies cefadroxil [From Duricef] Allergy (Verified 05/10/17 15:08) ertapenem [From Invanz] Allergy (Verified 05/10/17 15:08) naproxen [From Naprosyn] Allergy (Verified 05/10/17 15:08) - Review of Systems ROS: No change since H&P - Vital Signs and I&O's Vital Signs: Temperature 97.9 F Pulse Rate [Left Brachial] 85 Pulse Rate [Right Radial] 73 Pulse Rate [Left Radial] 70 Pulse Rate 74 Respiratory Rate 18 Blood Pressure [Left Arm] 120/58 Blood Pressure [Right Arm] 158/77 Blood Pressure 125/78 O2 Sat by Pulse Oximetry 96 Intake and Output: Intake & Output 05/11/17 05/12/17 05/13/17 05/14/17 11:59 11:59 11:59 11:59 Intake Total 0154 0280 2235 3172 Balance 3520 1289 2230 3172 - Physical Exam Oriented: Normal Eyes: Normal Ear: Normal Nose: Normal Throat: Normal Respiratory: Right, Left, Generalized, Wheezes, Rhonchi Cardiovascular: Normal. negative: Edema : Normal Auscultation: Bowel Sounds: Normal Palpation: Normal Tenderness: Normal Skin: Normal Musculoskeletal: Back:Thoracic, Back:Lumbar Psychiatric: Anxiety Mood Description: Calm Affect: Anxious, Depressed Speech Pattern: Clear, Appropriate - Laboratory and Diagnostics Result Diagrams: 05/14/17 04:50 05/14/17 04:50 Labs: 05/13/17 16:38 Sputum - Expectorated Sputum - Final 05/10/17 12:26 Blood Blood Culture - Preliminary 05/10/17 12:15 Blood Blood Culture - Preliminary 05/10/17 14:58 Sputum - Expectorated Sputum Sputum Culture - Final 05/10/17 14:58 Sputum - Expectorated Sputum - Final Laboratory WBC 7.3 X10^3/uL (3.6-10.0) 05/14/17 04:50 RBC 3.67 X10^6/uL (4.7-6.0) L 05/14/17 04:50 Hgb 11.6 g/dL (13.5-18.0) L 05/14/17 04:50 Hct 34.2 % (42.0-54.0) L 05/14/17 04:50 MCV 93.1 fL (80.0-100.0) 05/14/17 04:50 MCH 31.6 pg (27.0-34.0) 05/14/17 04:50 MCHC 33.9 g/dL (33.0-35.0) 05/14/17 04:50 RDW 15.5 % (11.6-16.5) 05/14/17 04:50 Plt Count 196 X10^3/uL (150.0-450.0) 05/14/17 04:50 Plt Count Comment Adequate (ADEQUATE) 05/14/17 04:50 MPV 8.2 fL (7.4-11.0) 05/14/17 04:50 Neut % (Auto) 92.8 % (42.0-75.0) H 05/14/17 04:50 Lymph % (Auto) 6.4 % (21.0-51.0) L 05/14/17 04:50 [place] % (Auto) 0.7 % (0.0-13.0) 05/14/17 04:50 Eos % (Auto) 0.0 % (0.9-2.9) L 05/14/17 04:50 Baso % (Auto) 0.1 % (0.2-1.0) L 05/14/17 04:50 Neut # (Auto) 6.8 x10^3/uL (2.2-4.8) H 05/14/17 04:50 Lymph # (Auto) 0.5 X10^3/uL (1.3-2.9) L 05/14/17 04:50 [place] # (Auto) 0 x10^3/uL (0.3-0.8) L 05/14/17 04:50 Eos # (Auto) 0.0 x10^3/uL (0.0-0.2) 05/14/17 04:50 Baso # (Auto) 0.0 X10^3/uL (0.0-0.1) 05/14/17 04:50 Absolute Nucleated RBC 0.0 /100WBC 05/14/17 04:50 Total Counted 100 05/14/17 04:50 Neutrophils % (Manual) 85 % (39-76) H 05/14/17 04:50 Band Neutrophils % 4 % (0-10) 05/14/17 04:50 Lymphocytes % (Manual) 10 % (13-43) L 05/14/17 04:50 Monocytes % (Manual) 1 % (4-9) L 05/14/17 04:50 Plt Morphology Comment Normal (NORMAL) 05/14/17 04:50 RBC Morphology Normal (NORMAL) 05/14/17 04:50 D-Dimer 1110 ng/mL (0-400) H* 05/10/17 12:15 Sodium 141 mmol/L (136-145) 05/14/17 04:50 Corrected Sodium 143 mmol/L (136-145) 05/14/17 04:50 Potassium 4.4 mmol/L (3.5-5.1) 05/14/17 04:50 Chloride 108 mmol/L (98-107) H 05/14/17 04:50 Carbon Dioxide 23.2 mmol/L (21-32) 05/14/17 04:50 BUN 11 mg/dL (7-18) 05/14/17 04:50 Creatinine 0.85 mg/dL (0.70-1.30) 05/14/17 04:50 Est GFR (MDRD) Af Amer > 60 (>60) 05/14/17 04:50 Est GFR (MDRD) Non-Af > 60 (>60) 05/14/17 04:50 Glucose 175 mg/dL (65-99) H 05/14/17 04:50 Lactic Acid 1.5 mmol/L (0.4-2.0) 05/10/17 12:15 Calcium 8.8 mg/dL (8.5-10.1) 05/14/17 04:50 Corrected Calcium TNP 05/14/17 04:50 Magnesium 1.9 mg/dL (1.7-2.9) 05/13/17 05:07 Total Bilirubin 0.30 mg/dL (0.2-1.0) 05/14/17 04:50 AST 15 Units/L (15-37) 05/14/17 04:50 ALT 35 Units/L (12-78) 05/14/17 04:50 Alkaline Phosphatase 48 Units/L (46-116) 05/14/17 04:50 Total Protein 6.8 g/dL (6.4-8.2) 05/14/17 04:50 Albumin 3.4 g/dL (3.4-5.0) 05/14/17 04:50 Globulin 3.4 g/dL (2.5-4.5) 05/14/17 04:50 Albumin/Globulin Ratio 1.0 Ratio (1.1-2.1) L 05/14/17 04:50 - Plan (1) Pneumonia Status: Acute Qualifiers: Pneumonia type: due to unspecified organism Laterality: left Lung location: lower lobe of lung Qualified Code(s): J18.1 - Lobar pneumonia, unspecified organism Plan: IV ATBX, SUPPLEMENTAL O2, BP MONITORING, JET NEBS, SPUTUM CULTURES, SOLU- MEDROL 80MG IV Q8H, CONTINUE TO MONITOR
[2017-05-14 11:59] VITALS: BP 133/65
[2017-05-14] MEDS ORDERED: COLACE CAP 100 MG PO SCH (21:00)
== END 2017-05-14 12:25 | disposition home or self-care (01) | DRG 195 ==
LOC: ER 11:28 → MED/SURG 15:24
PROVIDERS: ADMIT Internal Medicine; ATTEND Internal Medicine
DX: J18.1 Lobar pneumonia, unspecified organism (principal); R06.03 Acute respiratory distress; R06.02 Shortness of breath; R07.89 Other chest pain; J44.9 Chronic obstructive pulmonary disease, unspecified; I25.10 Atherosclerotic heart disease of native coronary artery without angina pectoris; F32.89 Other specified depressive episodes; F41.8 Other specified anxiety disorders; I10 Essential (primary) hypertension; E03.8 Other specified hypothyroidism
CPT/HCPCS: 36415; 71045; 71275; 80053; 83605; 83735; 85025; 85378; 87040; 87070; 87205; 94760; 96365; 96374; 99231; 99283; 99284; A4222; J0696; J0713; J1956; J2920; J3490

== ENCOUNTER 2017-06-10 15:18 | Emergency (ER) | payer OTHER ==
[2017-06-10 15:33] VITALS: BP 151/79; BMI 24.7
--- NOTE | 2017-06-10 16:29 | DR.GENAD ---
HPI - PCP Primary Care Physician: ELIDA TAPIA - HPI Comment HPI Comment: PATIENT SAW PCP TODAY BUT DUE TO HIS CARDIAC HISTORY, FURTHER EVALUATION WAS NEEDED. HE JUST DONT FEEL WELL. - Complaint/Symptoms Chief Complaint Doctors Comments: GENERALIZE WEAKNESS AND FATIGUE FOR GEW DAYS THAT IS WORSE TODAY. SAID HE IS HAVING NEAR SYNCOPAL FEELING. Chief Complaint:: PT C/O FEELING WEAK AND HAVING NO ENERGY AND HE WAS IN THE HOSPITAL AROUND [facility] WITH PNEUMONIA, PT WENT TO [facility] AND PT WAS TOLD TO COME TO ER FOR FURTHER EVALUATION. - Nurses notes reviewed Nurses Notes Review: Yes - Source History Provided: Patient - Mode of Arrival Mode of Arrival: Ambulatory - Timing Onset of Chief Complaint: 06/10/17 Came on: Suddenly - Duration Duration: Constant Duration: Days - Severity Severity: Moderate PMH - PMH Past Medical History: Yes Past Medical History: Arthritis, Hypertension, Hypothyroidism Past Surgical History: Yes Surgical History: Angioplasty/Stents, CABG/Valve Surgery Past Surgical History Comment: KNEE REPLACEMENT, SHOULDER SURGERY - Family History History of Family Medical Conditions: No Family Medical History: NC, Sudden Cardiac , Hypertension - Social History Does patient currently use any type of tobacco product: No Have you used tobacco products in the last 12 months: No Type of Tobacco Use: None Does any household member use tobacco: No Alcohol Use: None Do you use any recreational Drugs:: No Lives With: Family Lives Where: Home - infectious screening In the last 2 months have you had wt loss of >10#?: NO Have you had fever, night sweats or hemotysis?: No Have you traveled outside the country in the last 6 months?: No Isolation: Standard ROS - Review of Systems Constitutional: No Symptoms Reported, Weakness, Fatigue, Loss of Appetite. negative: Chills, Fever Eyes: negative: Eye Pain, Blurred Vision, Discharge ENTM: negative: Ear Pain, Nose Discharge, Nose Congestion, Throat Pain Respiratoy: Non-Productive Cough, Short of Breath (ON EXERTION.). negative: Productive Cough, Wheezing, Hemoptysis Cardiovascular: negative: Edema, Syncope (NEAR SYNCOPAL FEELING.) Gastrointestinal/Abdominal: negative: Abdominal Pain, Diarrhea, Nausea, Vomiting Genitourinary: negative: Dysuria, Hematuria Neurological: Weakness, Dizziness. negative: Headache (MILD) Musculoskeletal: Muscle Pain Integumentary: No Symptoms Reported Hematologic/Lymphatic: No Symptoms Reported Endocrine: No Symptoms Reported All Other Systems: Reviewed and Negative PE - Vital Signs Vitals: Temperature 98.8 F Pulse Rate 73 Respiratory Rate 20 Blood Pressure [Left Arm] 120/58 Blood Pressure [Right Arm] 133/65 Blood Pressure 151/79 O2 Sat by Pulse Oximetry 98 - General Limitations: No Limitations General Appearance: Alert - Head Head Exam: Normal Inspection - Eyes Eye exam: Normal Appearance, PERRL, EOMI. negative: Scleral Icterus, Conjunctival Injection - ENT ENT Exam: Normal External Ear Exam External Ear Exam: Normal External Inspection TM/Canal Exam: Bilateral Normal Nose Exam: Normal Nose Exam Mouth Exam: Normal Inspection Throat Exam: Normal Inspection - Neck Neck Exam: Trachea Midline - Chest Chest Inspection: Symmetric Chest Wall Rise - Respiratory Respiratory Exam: Normal Lung Sounds Bilat Respiratory Exam: Bilateral Clear to Auscultation - Cardiovascular Cardiovascular Exam: Regular Rate, Normal Rhythm, Normal Heart Sounds - Abdominal Exam Abdominal Exam: Normal Bowel Sounds, Soft, Tenderness - Extremities Extremities Exam: Normal Inspection - Back Back Exam: Normal Inspection - Neurologic Neurological Exam: Alert, Oriented X3, CN II-XII Intact, Normal Gait, Reflexes Normal. negative: Motor Sensory Deficit - Psychiatric Psychiatric Exam: Normal Affect, Normal Mood MDM - Additional Information Additional Information Obtained From: Family - Differential Diagnosis Differential Diagnosis: NEAR SYNCOPE, FATIGE, GENERALIZE WEAKNESS. Course - Treatment Treatment: SEE ORDERS. - Education/Counseling Education/Counseling: Patient, Family, Education Educated On: Diagnosis, Needs for Follow Up ROR - Labs Reviewed Laboratory Results Reviewed?: Yes Result Diagrams: 06/10/17 16:49 06/10/17 16:49 Laboratory: WBC 7.1 X10^3/uL (3.6-10.0) 06/10/17 16:49 RBC 4.34 X10^6/uL (4.7-6.0) L 06/10/17 16:49 Hgb 13.8 g/dL (13.5-18.0) 06/10/17 16:49 Hct 40.6 % (42.0-54.0) L 06/10/17 16:49 MCV 93.6 fL (80.0-100.0) 06/10/17 16:49 MCH 31.8 pg (27.0-34.0) 06/10/17 16:49 MCHC 33.9 g/dL (33.0-35.0) 06/10/17 16:49 RDW 16.3 % (11.6-16.5) 06/10/17 16:49 Plt Count 201 X10^3/uL (150.0-450.0) 06/10/17 16:49 MPV 8.0 fL (7.4-11.0) 06/10/17 16:49 Neut % (Auto) 74.3 % (42.0-75.0) 06/10/17 16:49 Lymph % (Auto) 15.9 % (21.0-51.0) L 06/10/17 16:49 [place] % (Auto) 8.6 % (0.0-13.0) 06/10/17 16:49 Eos % (Auto) 0.8 % (0.9-2.9) L 06/10/17 16:49 Baso % (Auto) 0.4 % (0.2-1.0) 06/10/17 16:49 Neut # (Auto) 5.3 x10^3/uL (2.2-4.8) H 06/10/17 16:49 Lymph # (Auto) 1.1 X10^3/uL (1.3-2.9) L 06/10/17 16:49 [place] # (Auto) 0.6 x10^3/uL (0.3-0.8) 06/10/17 16:49 Eos # (Auto) 0.1 x10^3/uL (0.0-0.2) 06/10/17 16:49 Baso # (Auto) 0.0 X10^3/uL (0.0-0.1) 06/10/17 16:49 Absolute Nucleated RBC 0.0 /100WBC 06/10/17 16:49 Sodium 139 mmol/L (136-145) 06/10/17 16:49 Corrected Sodium TNP 06/10/17 16:49 Potassium 4.1 mmol/L (3.5-5.1) 06/10/17 16:49 Chloride 100 mmol/L (98-107) 06/10/17 16:49 Carbon Dioxide 28.8 mmol/L (21-32) 06/10/17 16:49 BUN 8 mg/dL (7-18) 06/10/17 16:49 Creatinine 0.86 mg/dL (0.70-1.30) 06/10/17 16:49 Est GFR (MDRD) Af Amer > 60 (>60) 06/10/17 16:49 Est GFR (MDRD) Non-Af > 60 (>60) 06/10/17 16:49 Glucose 95 mg/dL (65-99) 06/10/17 16:49 Calcium 9.1 mg/dL (8.5-10.1) 06/10/17 16:49 Corrected Calcium TNP 06/10/17 16:49 Total Bilirubin 0.50 mg/dL (0.2-1.0) 06/10/17 16:49 AST 15 Units/L (15-37) 06/10/17 16:49 ALT 30 Units/L (12-78) 06/10/17 16:49 Alkaline Phosphatase 50 Units/L (46-116) 06/10/17 16:49 Creatine Kinase 52 Units/L (39-308) 06/10/17 16:49 CK-MB (CK-2) 1.0 ng/mL (0-4.0) 06/10/17 16:49 CK/CKMB % Calc 1.9 % (<4) 06/10/17 16:49 Troponin I < 0.02 ng/mL (0-1.5) 06/10/17 16:49 C-Reactive Protein 1.70 mg/L (0-3.0) 06/10/17 16:49 Total Protein 8.3 g/dL (6.4-8.2) H 06/10/17 16:49 Albumin 4.5 g/dL (3.4-5.0) 06/10/17 16:49 Globulin 3.8 g/dL (2.5-4.5) 06/10/17 16:49 Albumin/Globulin Ratio 1.2 Ratio (1.1-2.1) 06/10/17 16:49 Specimen Type Clean catch urine 06/10/17 17:09 Urine Color Yellow (YELLOW) 06/10/17 17:09 Urine Appearance Clear (CLEAR) 06/10/17 17:09 Urine pH 6.5 (5.0 - 8.0) 06/10/17 17:09 Ur Specific [place] 1.010 (1.000-1.030) 06/10/17 17:09 Urine Protein Negative (NEGATIVE) 06/10/17 17:09 Urine Glucose (UA) Negative (NEGATIVE) 06/10/17 17:09 Urine Ketones 1+ (NEGATIVE) 06/10/17 17:09 Urine Occult Blood 2+ (NEGATIVE) 06/10/17 17:09 Urine Nitrite Negative (NEGATIVE) 06/10/17 17:09 Urine Bilirubin Negative (NEGATIVE) 06/10/17 17:09 Urine Urobilinogen Normal (NORMAL) 06/10/17 17:09 Ur Leukocyte Esterase 1+ (NEGATIVE) 06/10/17 17:09 Urine RBC 0-2 /HPF (NONE SEEN) 06/10/17 17:09 Urine WBC 0-2 /HPF (NONE SEEN) 06/10/17 17:09 Ur Squamous Epith Cells Rare /HPF (NEGATIVE) 06/10/17 17:09 Urine Bacteria Trace /HPF (NEGATIVE) 06/10/17 17:09 Urine Mucus Rare /HPF (NEGATIVE) 06/10/17 17:09 Ur Culture Indicated? No/not indicated 06/10/17 17:09 - XRAY XRAY Interpreted by: Radiologist XRAY Findings: REPORT DISCUSS WITH PATIENT. - EKG Rhythm: NSR (EKG NOTED.) - Diagnosis Discharge Problem: Generalized weakness, Near syncope - Discharge Plan Disposition: 01 HOME, SELF-CARE Condition: Stable - Follow ups/Referrals Follow ups/Referrals: Wale Estrada [Primary Care Provider] - 06/11/17 - Instructions Instructions: Fatigue, Weakness, [id number] Additional Instructions: RETURN TO ED IF WORSE.
[2017-06-10 16:58] LABS: BASOPHILS % (AUTO) 0.4 % (0.2-1.0); EOSINOPHILS # (AUTO) 0.1 x10^3/uL (0.0-0.2); EOSINOPHILS % (AUTO) 0.8 % (0.9-2.9); HEMATOCRIT 40.6 % (42.0-54.0); HEMOGLOBIN 13.8 g/dL (13.5-18.0); LYMPHOCYTES # (AUTO) 1.1 X10^3/uL (1.3-2.9); LYMPHOCYTES % (AUTO) 15.9 % (21.0-51.0); MEAN CORPUSCULAR HEMOGLOBIN 31.8 pg (27.0-34.0); MEAN CORPUSCULAR HGB CONC 33.9 g/dL (33.0-35.0); MEAN CORPUSCULAR VOLUME 93.6 fL (80.0-100.0); MONOCYTES # (AUTO) 0.6 x10^3/uL (0.3-0.8); MONOCYTES % (AUTO) 8.6 % (0.0-13.0); NEUTROPHILS # (AUTO) 5.3 x10^3/uL (2.2-4.8); NEUTROPHILS % (AUTO) 74.3 % (42.0-75.0); PLATELET COUNT 201 X10^3/uL (150.0-450.0); RED BLOOD COUNT 4.34 X10^6/uL (4.7-6.0); RED CELL DISTRIBUTION WIDTH 16.3 % (11.6-16.5); WHITE BLOOD COUNT 7.1 X10^3/uL (3.6-10.0)
--- NOTE | 2017-06-10 17:12 | RAD ---
HISTORY: Shortness of breath Study: AP portable chest Comparison: 05/14/2017 Findings: The lungs are clear. The heart size is normal. The patient is status post median sternotomy. No ac mohegan bony abnormalities are identified. IMPRESSION: 1. No radiographic evidence of acute cardiopulmonary disease or significant change is noted when com pared to the prior examination. Reported By:
[2017-06-10 17:17] LABS: BILIRUBIN,URINE NEGATIVE (NEGATIVE); BLOOD/HEMOGLOBIN,URINE 2+ (NEGATIVE); GLUCOSE, URINE NEGATIVE (NEGATIVE); KETONES,URINE 1+ (NEGATIVE); LEUKOCYTE ESTERASE ,URINE 1+ (NEGATIVE); NITRITES,URINE NEGATIVE (NEGATIVE); PH,URINE 6.5 (5.0 - 8.0); PROTEIN,URINE NEGATIVE (NEGATIVE); UROBILINOGEN,URINE NORMAL (NORMAL)
[2017-06-10 17:24] LABS: APPEARANCE,URINE CLEAR (CLEAR); COLOR,URINE YELLOW (YELLOW)
[2017-06-10 17:25] LABS: BACTERIA,URINE TRACE /HPF (NEGATIVE); MUCUS,URINE RARE /HPF (NEGATIVE); RBC,URINE 0-2 /HPF (NONE SEEN); SQUAMOUS EPITHELIAL CELL,UR RARE /HPF (NEGATIVE)
[2017-06-10 18:18] LABS: BLOOD UREA NITROGEN 8 mg/dL (7-18); CALCIUM 9.1 mg/dL (8.5-10.1); CARBON DIOXIDE 28.8 mmol/L (21-32); CHLORIDE 100 mmol/L (98-107); CREATININE 0.86 mg/dL (0.70-1.30); SODIUM 139 mmol/L (136-145); TROPONIN I < 0.02 ng/mL (0-1.5); eGFR BLACK RACES > 60 (>60); eGFR NON BLACK RACES > 60 (>60)
[2017-06-10 18:21] LABS: ALANINE AMINOTRANSFERASE 30 Units/L (12-78); ALBUMIN 4.5 g/dL (3.4-5.0); ALKALINE PHOSPHATASE 50 Units/L (46-116); ASPARTATE AMINO TRANSFERASE 15 Units/L (15-37); CKMB % 1.9 % (<4); CREATINE KINASE 52 Units/L (39-308); TOTAL PROTEIN 8.3 g/dL (6.4-8.2)
== END 2017-06-10 18:57 | disposition home or self-care (01) ==
LOC: ER 15:39
DX: R53.1 Weakness (principal); R55 Syncope and collapse; R94.31 Abnormal electrocardiogram [ECG] [EKG]
CPT/HCPCS: 36415; 71045; 80053; 81001; 82550; 82553; 84484; 85025; 86140; 93005; 93010; 99283; 99285

== ENCOUNTER → 2017-06-11 | Outpatient (CLI) | payer OTHER ==
[2017-06-10 15:33] VITALS: BP 151/79
--- NOTE | 2017-06-11 15:15 | CT ---
HISTORY: Dizziness and headaches x1 week. Study: CT brain without contrast Comparison: CT head dated January 28, 2015. Technique: Multiple axial images of the brain were obtained from the skull base to the vertex without administra tion of IV contrast. Dose reduction techniques including Automated Exposure Control (AEC) and adjust ment of mA and kV were utilized. Findings: Age-related cortical atrophy and chronic small vessel ischemic changes. No acute intraparenchymal hem orrhage or mass can be identified. No extra-axial fluid collections are seen. No alteration in the attenuation of the brain parenchyma can be identified to suggest acute or subacute ischemic change. The ventricular system is symmetric and nondilated. The extracranial structures are grossly unremark able. IMPRESSION: No acute intracranial pathology. Reported By:
== END ==
LOC: RAD 14:52
PROVIDERS: ATTEND Nurse Practitioner Family
DX: R51 Headache (principal); R42 Dizziness and giddiness; F41.8 Other specified anxiety disorders
CPT/HCPCS: 70450